=== PATIENT | male | born 1980 | race African-American/Black ===

== ENCOUNTER 2018-01-22 08:42 | Day surgery (SDC) | payer OTHER ==
[~2018-01-22 08:42] MED LIST: SOD CHLORIDE 0.9% 1,000 ML IV; VANCOMYCIN 1 GM 250 ML IVPB
[2018-01-22] MEDS ORDERED: MIDAZOLAM 1 MG/ML 2 ML INJ (10:14)
[2018-01-22] MEDS ORDERED: ROCURONIUM 50 MG INJ (10:14)
[2018-01-22] MEDS ORDERED: NEOSTIGMINE 3 MG/3 ML SYRINGE (10:14)
[2018-01-22] MEDS ORDERED: PROPOFOL 20 ML (10:14)
[2018-01-22] MEDS ORDERED: DEXAMETHASONE 4 MG/ML 1 ML INJ (10:14)
[2018-01-22] MEDS ORDERED: CEFAZOLIN 1 GM INJ (10:14)
[2018-01-22] MEDS ORDERED: ONDANSETRON 4 MG INJ (10:14)
[2018-01-22] MEDS ORDERED: FENTAnyl 50 MCG/ML VIAL ×2 (10:14→11:00)
[2018-01-22] MEDS ORDERED: GLYCOPYRROLATE 0.4 MG INJ (10:14)
[2018-01-22] MEDS ORDERED: EPHEDrine SULFATE 50 MG/5 ML SYG IV (12:00)
[2018-01-22] MEDS ORDERED: HYDROmorphONE 1 MG/5 ML IV SYRINGE IV ×3 (12:00)
[2018-01-22] MEDS ORDERED: hydrALAzine 20 MG INJ IV (12:00)
[2018-01-22] MEDS ORDERED: TRIMETHOBENZAMIDE 100 MG/ML VIAL IM (12:00)
[2018-01-22] MEDS ORDERED: MIDAZOLAM 1 MG/ML 2 ML INJ IV (12:00)
[2018-01-22] MEDS ORDERED: DIPHENHYDRAMINE 50 MG INJ IV (12:00)
[2018-01-22] MEDS ORDERED: IPRATROPIUM (NEB) 0.5 MG/2.5 ML AMP HHN (12:00)
[2018-01-22] MEDS ORDERED: ONDANSETRON 4 MG INJ IV (12:00)
[2018-01-22] MEDS ORDERED: OXYCODONE/ACETAMINOPHEN (5/325) TAB PO ×2 (12:00)
[2018-01-22] MEDS ORDERED: FENTAnyl 50 MCG/ML VIAL IV ×3 (12:00)
[2018-01-22] MEDS ORDERED: MEPERIDINE 25 MG INJ IV (12:00)
[2018-01-22] MEDS ORDERED: LABETALOL HCL 20MG INJ IV (12:00)
[2018-01-22] MEDS ORDERED: ALBUTEROL 0.083% (NEB) 2.5 MG/3 ML AMP HHN (12:00)
[2018-01-22] MEDS: BUPIVACAINE 0.5%/EPI (SDV) 30 ML INJ (12:11)
== END 2018-01-22 14:34 | disposition home or self-care (01) ==
LOC: SDS 08:42
DX: K60.3 Anal fistula (principal); F17.200 Nicotine dependence, unspecified, uncomplicated
CPT/HCPCS: 46270; 71045; 88304; 93005